=== PATIENT | male | born 1980 | race Two or more races ===

== ENCOUNTER 2022-04-18 03:37 | Emergency (ER) | payer OTHER ==
[~2022-04-18] VITALS: Ht 182.9 cm; Wt 83.9 kg
[2022-04-18] MEDS ORDERED: KETO10TA2 PO (07:00)
== END 2022-04-18 07:41 ==
LOC: ER 03:37
DX: S29.011A Strain of muscle and tendon of front wall of thorax, initial encounter (principal); X58.XXXA Exposure to other specified factors, initial encounter; Y93.9 Activity, unspecified; Y92.9 Unspecified place or not applicable; Y99.9 Unspecified external cause status; F10.929 Alcohol use, unspecified with intoxication, unspecified; F12.929 Cannabis use, unspecified with intoxication, unspecified